=== PATIENT | female | born 2005 | race Caucasian/White ===

== ENCOUNTER 2024-10-11 10:35 | Emergency (ER) | payer BC, SELFPAY ==
[2024-10-11 10:36] VITALS: BP 122/75; PULSE 83; RESP 16; TEMP 36.7; O2SAT 97
--- NOTE | 2024-10-11 11:07 | EDS_ITS ---
HPI HPI - GI History of Present Illness Chief Complaint: GI Bleed Informant: patient Narrative Narrative: Healthy 19-year-old female presenting with blood in her stool for the last week or so. She states it is mixed in with her diarrhea which she is having a couple of times per day at most. The diarrhea is not new is chronic and not necessarily worse than usual. She states she has been having abdominal pain in the last several days which is new. She denies having any melena. No nausea or vomiting. No fevers or chills. She has anaphylactoid reactions to peanuts which she avoids, but when she drinks milk she usually gets diarrhea. She admits that she does a poor job of avoiding dairy. She has been having no weight loss. She denies any discomfort or feeling like there is a mass/hemorrhoid in her perianal area. She states the blood is mixed in with her diarrhea, not necessarily afterwards, and she has not been bearing down hard to have bowel movements at all. No history of hemorrhoids that she knows of. She has never had any of this evaluated before. She states diverticulitis runs in the family. [facility] Medical History (Updated 10/11/24 @ 12:[address] Ronni Tabor MD) Asthma Epilepsy Fibromyalgia Medical History no medical history no medical history Allergy/AdvReac Type Severity Reaction Status Date / Time peanut (peanuts) Allergy Severe Anaphylaxis Verified 10/11/24 10:40 milk Allergy Intermediate Diarrhea Verified 10/11/24 10:40 cat dander (cats) Allergy Mild CONGESTION Verified 10/11/24 10:40 dog dander Allergy Mild CONGESTION Verified 10/11/24 10:40 Social History Smoking Status: Never smoker [facility] ED Constitutional Constitutional ED: Denies chills or fever(s) Eyes Eyes: Denies change in vision or diplopia ENT ENT ED: Denies rhinorrhea or sore throat Cardiovascular Cardiovascular: Denies chest pain or palpitations Respiratory/Chest Respiratory/Chest: Denies cough or dyspnea Gastrointestinal Gastrointestinal: Reports abdominal pain, diarrhea and hematochezia; Denies melena, nausea or vomiting Genitourinary Genitourinary ED: Denies dysuria or hematuria Musculoskeletal Musculoskeletal: Denies back pain or neck pain Integumentary Denies abscess or rash Neurologic Neurologic: Denies headache(s), paresthesias or weakness Psychiatric Psychiatric: Denies anxiety or suicidal thoughts EXAM Physical Exam Const Vital Signs: 10/11/24 10:36 10/11/24 12:36 Temperature 98.1 F 97.4 F L Temperature Source Oral Oral Pulse Rate 83 75 Respiratory Rate 16 16 Blood Pressure 122/75 H 113/94 H Blood Pressure Mean 90 100 Pulse Ox 97 98 Oxygen Delivery Method Room Air Room Air Positive well nourished and well developed General Appearance ED: well developed and NAD HEENT Reports moist mucous membranes normocephalic and atraumatic Eyes PERRL and EOMs intact bilaterally Neck full ROM and supple Resp normal respiratory effort and clear to auscultation bilaterally Cardio regular rate, regular rhythm and no murmurs GI non-distended GI Narrative: Mild subjective suprapubic and right lower quadrant tenderness, no guarding or rebound, negative Rovsing. Auscultation: normoactive bowel sounds Palpation: soft Back/Spine no CVA tenderness General Back: other FROM Extremity normal to inspection General Extremety ED: Negative for edema, pulses abnormal or tenderness General Extremity: Negative for edema or pulses abnormal Neuro oriented x3, CN's II-XII intact bilaterally and no sensory deficits noted Sensorium / Orientation: awake and alert Motor Exam: strength 5/5 throughout Skin no rashes or lesions noted and no wounds MDM MDM MDM Narrative Medical decision making narrative: Given this patient's age and health I do not think this is diverticulitis especially since most of the pain is focused on the right. As I do not think this is likely to be appendicitis given the history. Terminal ileitis and Crohn's/IBD definitely are in the differential, we discussed the difficulty in diagnosing at the ER and need for GI follow-up but for now I think obtaining labs to rule out anemia and elevated BUN to suggest an upper GI source her liver enzymes are normal as well., As well as looking at her white blood count. These were done I reviewed the labs, she does not have a leukocytosis or left shift, nor an elevated BUN, nor anemia. Her exam is very benign, she has no perianal tenderness, mass, abscess, hemorrhoid, or other abnormality on inspection. This exam was performed with nurse brush clearing laborer. Offered the patient some dicyclomine but she declined, and she does not want a prescription for it either or anything else for discomfort at this time. Advised to follow-up with GI as she will probably need a scope at some point. Lab Data Attestation: I reviewed the patient's lab results. Labs: Laboratory Results - last 24 hr 10/11/24 11:22 WBC 7.7 RBC 4.42 Hgb 13.0 Hct 40.2 MCV 91.0 MCH 29.4 MCHC 32.3 RDW Std Deviation 42.8 RDW Coeff of Treva 13.0 Plt Count 234 MPV 11.8 Immature Gran % (Auto) 0.400 Neut % (Auto) 64.1 Lymph % (Auto) 24.7 [place] % (Auto) 7.1 Eos % (Auto) 3.2 Baso % (Auto) 0.5 Absolute Neuts (auto) 5.0 Absolute Lymphs (auto) 1.91 Nucleated RBC % 0 Sodium 139 Potassium 4.0 Chloride 108 H Carbon Dioxide 23.0 Anion Gap 8 BUN 8 Creatinine 0.66 Estim Creat Clear Calc 142.55 Est GFR (MDRD) Af Amer 144 Est GFR (MDRD) Non-Af 119 BUN/Creatinine Ratio 12.0 Glucose 93 Calcium 9.4 Total Bilirubin 0.30 AST 14 L ALT 21 Alkaline Phosphatase 81 Total Protein 7.4 Albumin 4.0 Globulin 3.4 Albumin/Globulin Ratio 1.2 Serum , Qual NEGATIVE Discharge Plan Triage Chief Complaint: GI Bleed ED Provider: Ronni Tabor Dx/Rx/DC Orders Clinical Impression: Acute lower gastrointestinal bleeding, Chronic diarrhea, Lower abdominal pain Instructions: ED Diarrhea, Unknown Cause, ED Lower GI Bleeding (Stable) Primary Care Provider: Care Physician,No Primary Referrals: Friend,Hans, DO [Med Staff - Active Staff] - (call for appt) NOT,DEFINED [Non-Staff] - Print Language: Irish Disposition Disposition: Home, Self Care
[2024-10-11 11:36] LABS: Absolute Lymphocyte Count 1.91 X10^3/uL (0.83-4.51); Basophil# 0.04 X10^3/uL; Basophil% 0.5 % (0-1); Eosinophil# 0.25 X10^3/uL; Eosinophils% 3.2 % (0-5); Hematocrit 40.2 % (37-47); Lymphocyte # 1.91 X10^3/ul (0.83-4.51); Lymphocyte % 24.7 % (19-41); Mean Corp Hgb Conc 32.3 g/dL (32-36); Mean Corpuscular Hgb 29.4 pg (27.0-32.0); Mean Platelet Vol. 11.8 fl (6.2-12.0); Monocyte# 0.55 X10^3/uL; Monocyte% 7.1 % (0-10); NRBC Flagged by Analyzer 0 % (0-5); Neutrophil # 4.96 X10^3/uL (2.7-7.7); Neutrophil % 64.1 % (47-70); Platelet Count 234 K/mm3 (150-450); RBC Distribution Width SD 42.8 fl (35.1-43.9); Red Blood Count 4.42 M/mm3 (4.2-5.4); White Blood Count 7.7 K/mm3 (4.4-11.0)
[2024-10-11 11:46] LABS: Internal QC Validated? YES +Cl - CLEAR BKGD; Pregnancy, Serum, hCG Quali. NEGATIVE Negative
[2024-10-11 11:56] LABS: ALB/GLOB Ratio 1.2 RATIO (0.9-2.4); AST(SGOT) 14 U/L (15-37); Alanine Aminotransfer ALT/SGPT 21 U/L (13-56); Alkaline Phosphatase 81 U/L (45-117); Anion Gap 8 (5-15); BUN 8 mg/dL (7-18); Calcium,Total 9.4 mg/dL (8.5-10.1); Chloride 108 mmol/L (98-107); Creatinine, Serum 0.66 mg/dL (0.55-1.02); EST Glomerular Filtration Rate 119 mL/min (>60); Est Glom Filt Rate - Afr Amer 144 mL/min (>60); Estimated Creatinine Clearance 142.55 ml/min; Globulin 3.4 g/dL (2.2-4.2); Glucose 93 mg/dL (74-106); Protein, Total 7.4 g/dL (6.4-8.2); Sodium Level 139 mmol/L (136-145)
[2024-10-11 12:36] VITALS: BP 113/94; PULSE 75; RESP 16; TEMP 36.3; O2SAT 98
[2024-10-11 12:53] VITALS: BP 113/94; PULSE 75; RESP 16; TEMP 36.3; O2SAT 98
== END 2024-10-11 12:54 | disposition home or self-care (01) ==
PROVIDERS: Emergency Provider Emergency Medicine; Visit Provider Emergency Medicine
DX: K92.1 Melena (principal); R10.30 Lower abdominal pain, unspecified; K52.9 Noninfective gastroenteritis and colitis, unspecified; J45.909 Unspecified asthma, uncomplicated; M79.7 Fibromyalgia
CPT/HCPCS: 80053; 84703; 85025; 99283